=== PATIENT | male | born 1955 | race Hispanic/Latino ===

== ENCOUNTER → 2020-04-19 | Outpatient (CLI) | payer OTHER ==
--- NOTE | 2020-04-20 09:23 | Diagnostic Imaging Report ---
TECHNIQUE: Magnetic resonance imaging of the RIGHT foot was performed WITHOUT injected contrast. HISTORY: Osteomyelitis COMPARISON: None available. DISCUSSION: Evaluation is partially limited by lack of IV contrast. Bone: Bone marrow edema with T1 hypointense signal replacement at the first toe distal phalanx base and adjacent head of the proximal phalanx. No additional acute osseous abnormalities. Joints: No joint malalignment or dislocation. Trace fluid within the first MTP joint. Mild degenerative arthrosis of the first and fifth MTP joints. Muscles/tendons: Prominent fatty atrophy of the visualized intrinsic forefoot musculature. Visualized portions of flexor and extensor tendons remain intact. Soft Tissues: Irregularity along the dorsal medial superficial skin of the first toe which may abut the underlying bone. Associated mild subcutaneous soft tissue edema along the medial aspect of the first toe. Additional reactive subcutaneous edema along the dorsum of the forefoot. IMPRESSION: Bone marrow signal changes at the first toe distal and proximal phalanges, concerning for osteomyelitis given adjacent suspected skin ulcer or less likely degenerative changes. Signed by: Dr. Adam Haney M.D. on 04/20/2020 9:20 AM
== END ==
LOC: MRI 15:40
PROVIDERS: ATTEND Podiatrist Foot & Ankle Surgery
DX: M86.571 Other chronic hematogenous osteomyelitis, right ankle and foot (principal)